=== PATIENT | female | born 1980 | race Caucasian/White ===

== ENCOUNTER 2019-08-19 03:07 | Emergency (ER) | payer OTHER ==
--- NOTE | 2019-08-19 03:10 | PDOC ---
History of Present Illness - General Chief Complaint: Nausea/Vomiting Stated Complaint: DIZZY/VOMITING Time Seen by Provider: 08/19/19 03:09 History Source: Patient - History of Present Illness Initial Comments: 39 YOF h/o lymphoma presents with CP, right arm numbness, and nausea for 3 hours duration. Patient reports that this AM she woke up to a sensation of numbness in her right arm. She subsequently began to experience a tight, "squeezing" pain her chest and became nauseas which prompted her to call EMS. She also notes some recent intermittent blurry vision. She denies loss of strength, speech d ifficulties, confusion, vomiting, diarrhea, fever or chills. Past History - Travel History Traveled outside of the country in the last 30 days: No Close contact w/someone who was outside of country & ill: No - Medical History Allergies/Adverse Reactions: Allergies Allergy/AdvReac Type Severity Reaction Status Date / Time No Known Allergies Allergy Verified 08/19/19 03:12 Home Medications: Ambulatory Orders Azithromycin [Zithromax Tri-Ko (3 DAYS) -] 500 mg PO DAILY #3 tablet 08/19/19 Review of Systems - Review of Systems Constitutional: Yes: See HPI HEENTM: Yes: See HPI Respiratory: Yes: See HPI Cardiac (ROS): Yes: See HPI ABD/GI: Yes: See HPI : Yes: See HPI Musculoskeletal: Yes: See HPI Integumentary: Yes: See HPI Neurological: Yes: See HPI Endocrine: Yes: See HPI Hematologic/Lymphatic: Yes: See HPI *Physical Exam - Physical Exam General Appearance: Yes: Nourished, Appropriately Dressed HEENT: positive: EOMI, GALLITO, Normal Voice Respiratory/Chest: positive: Lungs Clear, Normal Breath Sounds Cardiovascular: positive: Regular Rhythm, Regular Rate, S1, S2 Gastrointestinal/Abdominal: positive: Normal Bowel Sounds, Soft Neurologic: positive: pull through hooker II-XII NML intact, Fully Oriented, Alert, Normal Mood/Affect, Normal Response, Motor Strength 5/5 ED Treatment Course - LABORATORY CBC & Chemistry Diagram: 08/19/19 03:54 08/19/19 03:54 Medical Decision Making - Medical Decision Making 39 YOF h/o lymphoma presenting with arm numbness, chest pain, and nausea. Physical exam wnl, no acute neurological abnormalities. ddx includes but is not limited to TIA, CVA, panic attack, PE. Plan: Labs, Troponin, D-Dimer, EKG, CT head, CTA chest if elevated D dimer. Reasses: Labs wnl. Borderline elevated D dimer prompted CTA chest. CT head demonstrates no acute abnormalities. CTA chest unrevealing of PE, however shows area of consolidation/ atelectasis which could not exclude pneumonia. EKG wnl. Will prescribe azithromycin for possible pneumonia. Patient will be transferred to day team. Discharge - Discharge Information Problems reviewed: Yes Clinical Impression/Diagnosis: Right arm numbness PNA (pneumonia) Qualifiers: Pneumonia type: due to unspecified organism Laterality: right Lung location: middle lobe of lung Qualified Code(s): J18.9 - Pneumonia, unspecified organism Condition: Good Disposition: HOME - Additional Discharge Information Prescriptions: Azithromycin [Zithromax Tri-Ko (3 DAYS) -] 500 mg PO DAILY #3 tablet - Follow up/Referral Referrals: Laci Sigala MD [Staff Physician] - - Patient Discharge Instructions Patient Printed Discharge Instructions: DI for Pneumonia -- Adult Additional Instructions: Your CT shows that you have a small lung infection. There was no evidence of a stroke Take the prescribed azithromycin as directed. Take tylenol or ibuprofen if you have pain. Please follow up with your primary care doctor and the referred neurologist Dr Sigala - Post Discharge Activity
--- NOTE | 2019-08-19 03:13 | PDOC ---
Attending Attestation - Resident Resident Name: Gianluca Mendoza - ED Attending Attestation I have performed the following: I have examined & evaluated the patient, The case was reviewed & discussed with the resident, I agree w/resident's findings & plan - HPI HPI: 08/19/19 04:41 see resident hpi - Physicial Exam PE: 08/19/19 04:41 see resident exam - Medical Decision Making 08/19/19 04:41 39-year-old female complaining of right arm numbness and heaviness that she noticed when abruptly awaking from sleep this evening, now resolved Patient had concurrent shortness of breath and lightheadedness now also improved We will plan for labs including troponin and d-dimer CT scan of the brain We will plan for observation admission for possible TIA pending results Discharge - Discharge Information Problems reviewed: Yes Clinical Impression/Diagnosis: Right arm numbness, Near syncope Condition: Fair - Follow up/Referral - Patient Discharge Instructions - Post Discharge Activity
[2019-08-19 03:15] VITALS: BMI 29.9
[2019-08-19] MEDS ORDERED: ONDANSETRON 4 MG/2 ML VIAL IVPUSH ONE (03:38)
[2019-08-19 04:14] LABS: BASO % 0.5 % (0-2.0); HEMATOCRIT 41.8 % (32.4-45.2); HEMOGLOBIN 13.8 GM/dL (10.7-15.3); LYMPH % 22.4 % (8-40); MCH 28.2 pg (25.7-33.7); MEAN CELL VOLUME 85.6 fl (80-96); MEAN PLT VOLUME 9.5 fl (7.5-11.1); MONO % 5.7 % (3.8-10.2); NEUT % 70.4 % (42.8-82.8); PLATELET COUNT 234 K/MM3 (134-434); RBC 4.88 M/mm3 (3.60-5.2); RDW 13.4 % (11.6-15.6); WHITE BLOOD COUNT 11.8 K/mm3 (4.0-10.0)
[2019-08-19 04:38] LABS: ALBUMIN 3.7 g/dl (3.4-5.0); BILIRUBIN,TOTAL 0.4 mg/dL (0.2-1); BLOOD UREA NITROGEN 14.3 mg/dL (7-18); CREATININE 0.9 mg/dL (0.55-1.3); POTASSIUM 3.7 mmol/L (3.5-5.1); TOT PROT 6.7 g/dl (6.4-8.2)
[2019-08-19 05:18] LABS: INR 0.88 (0.83-1.09); PROTHROMBIN TIME (PATIENT) 10.4 SEC (9.7-13.0)
[2019-08-19 05:20] LABS: ACTIVATED PTT 30.1 SECONDS (25.2-36.5)
--- NOTE | 2019-08-19 07:27 | PDOC ---
*Physical Exam - Vital Signs Last Vital Signs Temp Pulse Resp BP Pulse Ox 98 F 86 18 118/76 99 08/19/19 03:09 08/19/19 06:32 08/19/19 03:09 08/19/19 03:09 08/19/19 06:32 ED Treatment Course - LABORATORY CBC & Chemistry Diagram: 08/19/19 03:54 08/19/19 03:54 - ADDITIONAL ORDERS Additional order review: Laboratory Results 08/19/19 08/19/19 08/19/19 03:54 03:54 03:54 PT with INR 10.40 INR 0.88 PTT (Actin FS) 30.1 D-Dimer 535 H Sodium Potassium Chloride Carbon Dioxide Anion Gap BUN Creatinine Est GFR (CKD-EPI)AfAm Est GFR (CKD-EPI)NonAf Random Glucose Calcium Total Bilirubin AST ALT Alkaline Phosphatase Creatine Kinase 169 Creatine Kinase Index 1.4 CK-MB (CK-2) 2.4 Troponin I < 0.02 Total Protein Albumin Serum , Qual 08/19/19 08/19/19 03:54 03:54 PT with INR INR PTT (Actin FS) D-Dimer Sodium 139 Potassium 3.7 Chloride 103 Carbon Dioxide 29 Anion Gap 6 L BUN 14.3 Creatinine 0.9 Est GFR (CKD-EPI)AfAm 94.67 Est GFR (CKD-EPI)NonAf 81.68 Random Glucose 106 Calcium 9.0 Total Bilirubin 0.4 AST 20 ALT 40 Alkaline Phosphatase 69 Creatine Kinase Creatine Kinase Index CK-MB (CK-2) Troponin I Total Protein 6.7 Albumin 3.7 Serum , Qual Negative 08/19/19 03:54 RBC 4.88 MCV 85.6 MCHC 33.0 RDW 13.4 MPV 9.5 Neutrophils % 70.4 Lymphocytes % 22.4 Monocytes % 5.7 Eosinophils % 1.0 Basophils % 0.5 - Medications Given in the ED: ED Medications Discontinued Medications Generic Name Dose Route Start Last Admin Trade Name Freq PRN Reason Stop Dose Admin Ondansetron HCl 4 mg 08/19/19 03:38 08/19/19 04:17 Zofran Injection IVPUSH 08/19/19 03:39 4 mg ONCE ONE Administration Medical Decision Making - Medical Decision Making 08/19/19 07:27 39 YOF h/o lymphoma presents with CP, right arm numbness, and nausea for 3 hours duration. MRI neg for CVA, on re-eval pt is neurovascular intact R arm (5/5 strength, full ROM, no numbness, 2+ radial pulse). Low concern for ACS (neg tropx2, non concerning EKG). DC home w z-pack for early PNA on CT, PCP f/u Discharge - Discharge Information Problems reviewed: Yes Clinical Impression/Diagnosis: Right arm numbness PNA (pneumonia) Qualifiers: Pneumonia type: due to unspecified organism Laterality: right Lung location: middle lobe of lung Qualified Code(s): J18.9 - Pneumonia, unspecified organism Condition: Good Disposition: HOME - Additional Discharge Information Prescriptions: Azithromycin [Zithromax Tri-Ko (3 DAYS) -] 500 mg PO DAILY #3 tablet - Follow up/Referral Referrals: Laci Sigala MD [Staff Physician] - - Patient Discharge Instructions Patient Printed Discharge Instructions: DI for Pneumonia -- Adult Additional Instructions: Your CT shows that you have a small lung infection. There was no evidence of a stroke Take the prescribed azithromycin as directed. Take tylenol or ibuprofen if you have pain. Please follow up with your primary care doctor and the referred neurologist Dr Sigala - Post Discharge Activity
[2019-08-19 09:36] VITALS: BP 125/69; PULSE 85; TEMP 98.7
--- NOTE | 2019-08-19 12:03 | EKG ---
Test Reason : Blood Pressure : / mmHG Vent. Rate : 094 BPM Atrial Rate : 094 BPM P-R Int : 144 ms QRS Dur : 090 ms QT Int : 392 ms P-R-T Axes : 051 -13 031 degrees QTc Int : 490 ms NORMAL SINUS RHYTHM CANNOT RULE OUT ANTERIOR INFARCT , AGE UNDETERMINED ABNORMAL ECG NO PREVIOUS ECGS AVAILABLE Confirmed by MD Vladislav, Pola ([id number]) on 08/19/2019 12:02:30 PM Referred By: Confirmed By:Pola Loomis MD
== END 2019-08-19 09:40 | disposition home or self-care (01) ==
LOC: JER 03:07
PROC: 3E033NZ Introduction of Analgesics, Hypnotics, Sedatives into Peripheral Vein, Percutaneous Approach (ICD-10-PCS; principal; 2019-08-19)
DX: R20.2 Paresthesia of skin (principal); J18.9 Pneumonia, unspecified organism
CPT/HCPCS: 36415; 70450-TC; 70551-TC; 71275-TC; 80053; 82550; 82553; 84484; 84703; 85025; 85379; 85610; 85730; 93005; 93010; 99284-25; U0003

== ENCOUNTER 2020-11-25 02:14 | Observation (INO) | payer OTHER ==
[2020-11-25 02:29] VITALS: BMI 30.7
[2020-11-25] MEDS ORDERED: ACETAMINOPHEN 1000 MG/100 ML VIAL IVPB ONE (02:50)
[2020-11-25] MEDS ORDERED: LACTATED RINGERS SOLUTION 1000 ML INFUS.BAG IV ONE (02:50)
[2020-11-25 03:11] LABS: BASO % 0.8 % (0-2.0); EOS % 1.6 % (0-4.5); HEMATOCRIT 39.8 % (32.4-45.2); HEMOGLOBIN 13.5 GM/dL (10.7-15.3); MCH 28.1 pg (25.7-33.7); MEAN CELL VOLUME 82.6 fl (80-96); MEAN PLT VOLUME 8.7 fl (7.5-11.1); MONO % 6.4 % (3.8-10.2); NEUT % 68.2 % (42.8-82.8); PLATELET COUNT 206 10^3/uL (134-434); RBC 4.82 M/mm3 (3.60-5.2); RDW 13.1 % (11.6-15.6); WHITE BLOOD COUNT 8.8 K/mm3 (4.0-10.0)
[2020-11-25 03:18] LABS: INR 1.08 (0.83-1.09); PROTHROMBIN TIME (PATIENT) 12.1 SEC (9.7-13.0)
[2020-11-25 03:37] LABS: CHLORIDE 103 mmol/L (98-107); SODIUM 137 mmol/L (136-145)
[2020-11-25 03:39] LABS: ALBUMIN 3.6 g/dl (3.4-5.0); ANION GAP 8 MMOL/L (8-16); CALCIUM 8.6 mg/dL (8.5-10.1); CO2 27 mmol/L (21-32); MAGNESIUM 2.1 mg/dL (1.8-2.4)
[2020-11-25 03:40] LABS: BLOOD UREA NITROGEN 11.1 mg/dL (7-18)
[2020-11-25 03:42] LABS: GLUCOSE,RANDOM 100 mg/dL (74-106)
[2020-11-25 03:43] LABS: CREATININE 0.8 mg/dL (0.55-1.3); SGOT/AST 24 U/L (15-37); SGPT/ALT 42 U/L (13-61)
[2020-11-25 03:44] LABS: BILIRUBIN,TOTAL 0.8 mg/dL (0.2-1); TOT PROT 6.8 g/dl (6.4-8.2)
[2020-11-25 03:45] LABS: ALK PHOS 71 U/L (45-117)
[2020-11-25] MEDS ORDERED: methylPREDNISolone 8 MG TABLET PO ONE ×2 (04:19→14:30)
[2020-11-25] MEDS ORDERED: methylPREDNISolone 4 MG TABLET PO ONE ×3 (04:30→21:00)
[2020-11-25] MEDS ORDERED: ENOXAPARIN NA (PORCINE) 40 MG/0.4 ML DISP.SYRIN SQ SCH (10:00)
[2020-11-25] MEDS ORDERED: ENOXAPARIN NA (PORCINE) 40 MG/0.4 ML DISP.SYRIN SQ ONE (10:16)
[2020-11-25 10:43] LABS: BASO % 0.9 % (0-2.0); EOS % 0.2 % (0-4.5); HEMATOCRIT 42.8 % (32.4-45.2); HEMOGLOBIN 14.6 GM/dL (10.7-15.3); LYMPH % 11.9 % (8-40); MCH 28.4 pg (25.7-33.7); MCHC 34.1 g/dl (32.0-36.0); MEAN CELL VOLUME 83.4 fl (80-96); MONO % 1.6 % (3.8-10.2); NEUT % 85.4 % (42.8-82.8); PLATELET COUNT 232 10^3/uL (134-434); RBC 5.13 M/mm3 (3.60-5.2); RDW 12.8 % (11.6-15.6)
[2020-11-25] MEDS ORDERED: ENOXAPARIN NA (PORCINE) 100 MG/1 ML DISP.SYRIN SQ ONE ×2 (10:52→10:58)
[2020-11-25] MEDS: ENOXAPARIN NA (PORCINE) 100 MG/1 ML DISP.SYRIN SQ SCH ×2 (11:22→21:01)
[2020-11-25] MEDS ORDERED: diphenhydrAMINE HCL 25 MG CAPSULE (FP) PO ONE (15:30)
[2020-11-25] MEDS ORDERED: methylPREDNISolone NA SUCC 40 MG/1 ML VIAL IVPUSH ONE (15:41)
[2020-11-25 16:04] LABS: CHLORIDE 102 mmol/L (98-107); SODIUM 135 mmol/L (136-145)
[2020-11-25 16:07] LABS: CALCIUM 9.4 mg/dL (8.5-10.1)
[2020-11-25 16:08] LABS: ANION GAP 8 MMOL/L (8-16); BLOOD UREA NITROGEN 9.4 mg/dL (7-18); CO2 24 mmol/L (21-32); GLUCOSE,RANDOM 101 mg/dL (74-106); MAGNESIUM 1.8 mg/dL (1.8-2.4)
[2020-11-25 16:11] LABS: CREATININE 0.7 mg/dL (0.55-1.3); PHOSPHOROUS 3.3 mg/dL (2.5-4.9); SGOT/AST 30 U/L (15-37); SGPT/ALT 45 U/L (13-61)
[2020-11-25 16:12] LABS: BILIRUBIN,TOTAL 1.1 mg/dL (0.2-1); TOT PROT 7.8 g/dl (6.4-8.2)
[2020-11-25 16:14] LABS: ALK PHOS 81 U/L (45-117)
[2020-11-25] MEDS ORDERED: ACETAMINOPHEN 1000 MG/100 ML VIAL IVPB PRN (16:55)
[2020-11-25] MEDS ORDERED: ENOXAPARIN NA (PORCINE) 100 MG/1 ML DISP.SYRIN SQ SCH ×2 (22:00)
[2020-11-26] MEDS ORDERED: methylPREDNISolone 4 MG TABLET PO ONE (03:00)
[2020-11-26] MEDS ORDERED: diphenhydrAMINE HCL 25 MG CAPSULE (FP) PO ONE (03:00)
[2020-11-26] MEDS ORDERED: LORazepam 2 MG/ML SDV VIAL IVPUSH PRN (03:03)
[2020-11-26] MEDS ORDERED: EPINEPHrine 1:1,000 0.3 MG/0.3 ML SYR IM PRN (03:07)
[2020-11-26] MEDS ORDERED: EPINEPHrine 1:1,000 1 MG/1 ML - 30ML VIAL (INJECTION) SQ ONE (04:31)
[2020-11-26] MEDS ORDERED: EPINEPHrine/PF 1 MG/1 ML (1:1,000) AMPULE ONE (04:32)
[2020-11-26] MEDS ORDERED: TRIMETHOBENZAMIDE HCL 200MG/2ML INJ IM PRN (04:53)
[2020-11-26] MEDS ORDERED: EPINEPHrine/PF 1 MG/1 ML (1:1,000) AMPULE IM PRN (05:01)
[2020-11-26 08:31] LABS: BASO % 0.2 % (0-2.0); HEMATOCRIT 41.3 % (32.4-45.2); HEMOGLOBIN 13.9 GM/dL (10.7-15.3); LYMPH % 8.8 % (8-40); MCH 28.1 pg (25.7-33.7); MCHC 33.6 g/dl (32.0-36.0); MEAN CELL VOLUME 83.8 fl (80-96); MEAN PLT VOLUME 9.4 fl (7.5-11.1); MONO % 1.7 % (3.8-10.2); NEUT % 89.3 % (42.8-82.8); PLATELET COUNT 274 10^3/uL (134-434); RBC 4.93 M/mm3 (3.60-5.2); RDW 12.9 % (11.6-15.6); WHITE BLOOD COUNT 15.5 K/mm3 (4.0-10.0)
[2020-11-26 09:04] LABS: ALBUMIN 3.6 g/dl (3.4-5.0); BLOOD UREA NITROGEN 14.6 mg/dL (7-18)
[2020-11-26 09:05] LABS: BILIRUBIN,TOTAL 0.6 mg/dL (0.2-1); CALCIUM 9.3 mg/dL (8.5-10.1); TOT PROT 7.4 g/dl (6.4-8.2)
[2020-11-26 09:07] LABS: CREATININE 0.8 mg/dL (0.55-1.3)
[2020-11-26] MEDS: ENOXAPARIN NA (PORCINE) 100 MG/1 ML DISP.SYRIN SQ SCH (10:12)
[2020-11-26 14:10] LABS: URINE APPEARANCE CLEAR; URINE BILIRUBIN NEGATIVE (NEGATIVE); URINE COLOR YELLOW; URINE GLUCOSE (UA) NEGATIVE (NEGATIVE); URINE KETONE NEGATIVE (NEGATIVE)
[2020-11-26 14:11] LABS: EPI CELLS 68.4 /uL (0-25.1); HYALINE CASTS 2.41 /uL (0-3.1); URINE BACTERIA 1192.9 /uL (0-1359); URINE LEUK ESTERASE NEGATIVE (NEGATIVE); URINE NITRITE NEGATIVE (NEGATIVE); URINE PROTEIN NEGATIVE (NEGATIVE); URINE RBC 19 /uL (0-23.9); URINE UROBILINOGEN 0.2 mg/dL (0.2-1.0); URINE WBC 30.7 /uL (0-25.8)
[2020-11-27 06:40] LABS: BASO % 0.7 % (0-2.0); EOS % 0.2 % (0-4.5); HEMATOCRIT 39.6 % (32.4-45.2); HEMOGLOBIN 13.5 GM/dL (10.7-15.3); LYMPH % 33.6 % (8-40); MCH 28.8 pg (25.7-33.7); MCHC 34.1 g/dl (32.0-36.0); MEAN CELL VOLUME 84.4 fl (80-96); MEAN PLT VOLUME 9.2 fl (7.5-11.1); MONO % 5.6 % (3.8-10.2); NEUT % 59.9 % (42.8-82.8); PLATELET COUNT 199 10^3/uL (134-434); RBC 4.69 M/mm3 (3.60-5.2); RDW 12.8 % (11.6-15.6); WHITE BLOOD COUNT 9.9 K/mm3 (4.0-10.0)
[2020-11-27 09:16] VITALS: BP 116/65; PULSE 83; TEMP 97.9
[2020-11-27] MEDS ORDERED: ENOXAPARIN NA (PORCINE) 40 MG/0.4 ML DISP.SYRIN SQ SCH (10:00)
== END 2020-11-27 13:02 | disposition home or self-care (01) ==
LOC: JER 02:14 → JERBED 04:22 → J7W 13:11
PROVIDERS: ADMIT Internal Medicine
PROC: 3E033NZ Introduction of Analgesics, Hypnotics, Sedatives into Peripheral Vein, Percutaneous Approach (ICD-10-PCS; principal; 2020-11-25)
PROC: 3E023GC Introduction of Other Therapeutic Substance into Muscle, Percutaneous Approach (ICD-10-PCS; 2020-11-25)
PROC: 3E0337Z Introduction of Electrolytic and Water Balance Substance into Peripheral Vein, Percutaneous Approach (ICD-10-PCS; 2020-11-25)
PROC: 3E033GC Introduction of Other Therapeutic Substance into Peripheral Vein, Percutaneous Approach (ICD-10-PCS; 2020-11-25)
DX: C81.90 Hodgkin lymphoma, unspecified, unspecified site (principal); Z86.718 Personal history of other venous thrombosis and embolism; D64.9 Anemia, unspecified; F41.0 Panic disorder [episodic paroxysmal anxiety]; R07.89 Other chest pain; Z85.79 Personal history of other malignant neoplasms of lymphoid, hematopoietic and related tissues; R79.89 Other specified abnormal findings of blood chemistry; R07.9 Chest pain, unspecified
CPT/HCPCS: 36415; 71046-TC-FY; 71275-TC; 80053; 81003; 83615; 83735; 84100; 84439; 84443; 84484; 84703; 85025; 85379; 85610; 85730; 87086; 87186; 93005; 93010; 93306-TC; 93970-TC; 99285-25; C9803; G0378; J0131; Q9967; U0003; U0005

== ENCOUNTER 2020-11-29 05:50 | Emergency (ER) | payer OTHER ==
[2020-11-29 06:21] VITALS: BP 115/79; PULSE 90; TEMP 97.6; BMI 30.7
== END 2020-11-29 08:07 ==
LOC: JER 05:50
DX: R20.2 Paresthesia of skin (principal); R07.9 Chest pain, unspecified
CPT/HCPCS: 99281-25

== ENCOUNTER 2021-12-07 03:30 | Observation (INO) | payer OTHER ==
[2021-12-07] MEDS ORDERED: FAMOTIDINE 20 MG/50 ML IVPB 20 MG/50 ML MG IVPB ONE ×3 (03:38→14:00)
[2021-12-07] MEDS ORDERED: MAG HYDROX/AL HYDROX/SIMETH 30 ML UNIT-DOSE CUP PO ONE (03:38)
[2021-12-07] MEDS ORDERED: ACETAMINOPHEN 500 MG TABLET (FP) PO ONE (03:38)
[2021-12-07] MEDS ORDERED: MAG HYDROX/AL HYDROX/SIMETH 30 ML UNIT-DOSE CUP ONE (04:03)
[2021-12-07] MEDS ORDERED: ACETAMINOPHEN 325 MG TABLET (FP) ONE (04:03)
[2021-12-07 04:44] LABS: BASO % 0.3 % (0-2.0); EOS % 2.3 % (0-4.5); HEMOGLOBIN 12.6 GM/dL (10.7-15.3); MCHC 34.1 g/dl (32.0-36.0); MEAN CELL VOLUME 82.3 fl (80-96); NEUT % 65.4 % (42.8-82.8); PLATELET COUNT 213 10^3/uL (134-434); RDW 13.3 % (11.6-15.6); WHITE BLOOD COUNT 6.6 K/mm3 (4.0-10.0)
[2021-12-07 05:04] LABS: INR 0.99 (0.83-1.09); PROTHROMBIN TIME (PATIENT) 11.4 SEC (9.7-13.0)
[2021-12-07 05:05] LABS: BLOOD UREA NITROGEN 8.7 mg/dL (7-18); MAGNESIUM 2.1 mg/dL (1.8-2.4)
[2021-12-07 05:07] LABS: ACTIVATED PTT 28.7 SECONDS (25.2-36.5)
[2021-12-07 05:08] LABS: CREATININE 0.7 mg/dL (0.55-1.3)
[2021-12-07 05:10] LABS: BILIRUBIN,TOTAL 0.3 mg/dL (0.2-1); TOT PROT 6.1 g/dl (6.4-8.2)
[2021-12-07] MEDS ORDERED: DEXAMETHASONE SOD PHOSPHATE 10 MG/1 ML VIAL IVPUSH ONE (05:36)
[2021-12-07] MEDS ORDERED: DEXAMETHASONE SOD PHOSPHATE 10 MG/1 ML VIAL ONE (06:05)
[2021-12-07] MEDS ORDERED: ACETAMINOPHEN 325 MG TABLET (FP) PO PRN (08:08)
[2021-12-07] MEDS ORDERED: diphenhydrAMINE HCL 25 MG CAPSULE (FP) PO ONE (08:14)
[2021-12-07] MEDS ORDERED: ENOXAPARIN NA (PORCINE) 100 MG/1 ML DISP.SYRIN SQ ONE ×2 (08:38→08:52)
[2021-12-07] MEDS ORDERED: ENOXAPARIN NA (PORCINE) 40 MG/0.4 ML DISP.SYRIN SQ SCH (10:00)
[2021-12-07 10:22] LABS: EPI CELLS 19 /uL (0-25.1); HYALINE CASTS 3 /uL (0-3.1); URINE APPEARANCE CLOUDY; URINE BACTERIA 273 /uL (0-1359); URINE BILIRUBIN NEGATIVE (NEGATIVE); URINE COLOR RED; URINE GLUCOSE (UA) NEGATIVE (NEGATIVE); URINE KETONE NEGATIVE (NEGATIVE); URINE LEUK ESTERASE 3+ (NEGATIVE); URINE NITRITE NEGATIVE (NEGATIVE); URINE PROTEIN 2+ (NEGATIVE); URINE RBC 242 /uL (0-23.9); URINE UROBILINOGEN 0.2 mg/dL (0.2-1.0); URINE WBC 458 /uL (0-25.8)
[2021-12-07 10:33] LABS: HCG,QUALITATIVE URINE Negative
[2021-12-07] MEDS ORDERED: predniSONE 40 MG, predniSONE 10 MG PO ONE ×4 (12:00→18:30)
[2021-12-07] MEDS ORDERED: CEFTRIAXONE 1 GM/50 ML BAG ONE (12:07)
[2021-12-07] MEDS: CEFTRIAXONE 1 GM in DEXTROSE 5%-WATER - 50 ML IVPB SCH (12:16)
[2021-12-07] MEDS ORDERED: predniSONE 20 MG TABLET (UD) PO ONE ×3 (12:30→18:30)
[2021-12-07] MEDS ORDERED: predniSONE 20 MG TABLET (UD) PO SCH (14:00)
[2021-12-08 02:41] VITALS: RESP 18; BMI 35.3
[2021-12-08 08:11] LABS: BASO % 0.4 % (0-2.0); EOS % 0.1 % (0-4.5); HEMATOCRIT 37.1 % (32.4-45.2); HEMOGLOBIN 12.5 GM/dL (10.7-15.3); LYMPH % 22.2 % (8-40); MCH 28.1 pg (25.7-33.7); MCHC 33.7 g/dl (32.0-36.0); MEAN CELL VOLUME 83.3 fl (80-96); MEAN PLT VOLUME 9.1 fl (7.5-11.1); MONO % 5.1 % (3.8-10.2); NEUT % 72.2 % (42.8-82.8); PLATELET COUNT 239 10^3/uL (134-434); RBC 4.46 M/mm3 (3.60-5.2); RDW 13.2 % (11.6-15.6); WHITE BLOOD COUNT 11.4 K/mm3 (4.0-10.0)
[2021-12-08 08:30] LABS: CALCIUM 8.9 mg/dL (8.5-10.1)
[2021-12-08 08:31] LABS: MAGNESIUM 2.1 mg/dL (1.8-2.4)
[2021-12-08 08:34] LABS: CREATININE 0.7 mg/dL (0.55-1.3); PHOSPHOROUS 3.5 mg/dL (2.5-4.9)
[2021-12-08] MEDS ORDERED: cefTRIAXone SODIUM 1 GM VIAL ONE (09:08)
[2021-12-08] MEDS: CEFTRIAXONE 1 GM in DEXTROSE 5%-WATER - 50 ML IVPB SCH (09:14)
[2021-12-08 18:26] VITALS: BP 120/76; PULSE 77; TEMP 97.8
== END 2021-12-08 18:45 | disposition home or self-care (01) ==
LOC: JER 03:30 → JERBED 06:10 → J4W 12-08 01:30
PROVIDERS: ADMIT Internal Medicine; ATTEND Internal Medicine
PROC: 3E03329 Introduction of Other Anti-infective into Peripheral Vein, Percutaneous Approach (ICD-10-PCS; principal; 2021-12-07)
PROC: 3E033GC Introduction of Other Therapeutic Substance into Peripheral Vein, Percutaneous Approach (ICD-10-PCS; 2021-12-07)
PROC: 3E023GC Introduction of Other Therapeutic Substance into Muscle, Percutaneous Approach (ICD-10-PCS; 2021-12-07)
DX: J06.9 Acute upper respiratory infection, unspecified (principal); C81.95 Hodgkin lymphoma, unspecified, lymph nodes of inguinal region and lower limb; G47.33 Obstructive sleep apnea (adult) (pediatric); Z86.718 Personal history of other venous thrombosis and embolism; R79.1 Abnormal coagulation profile; R07.89 Other chest pain
CPT/HCPCS: 0241U-QW; 36415; 71045-TC-FY; 80048; 80053; 81003; 83735; 84100; 84443; 84484; 84703; 85025; 85379; 85610; 85730; 87086; 93005; 93010; 93306-TC; 93970-TC; 96365; 96367; 96372; 96375; 99285-25; G0378; J1100

== ENCOUNTER 2022-06-07 04:16 | Day surgery (SDC) | payer OTHER ==
[2022-06-02 15:58] VITALS: BMI 35.5
[2022-06-07 08:54] VITALS: TEMP 98
[2022-06-07 09:08] VITALS: RESP 18
[2022-06-07 09:51] VITALS: BP 115/72; PULSE 80
== END 2022-06-07 09:38 | disposition home or self-care (01) ==
LOC: JASU-ENDO 04:16
PROVIDERS: ATTEND Student in an Organized Health Care Education/Training Program
PROC: 0DB78ZX Excision of Stomach, Pylorus, Via Natural or Artificial Opening Endoscopic, Diagnostic (ICD-10-PCS; 2022-06-07)
PROC: 0DB68ZX Excision of Stomach, Via Natural or Artificial Opening Endoscopic, Diagnostic (ICD-10-PCS; 2022-06-07)
PROC: 0DB48ZX Excision of Esophagogastric Junction, Via Natural or Artificial Opening Endoscopic, Diagnostic (ICD-10-PCS; 2022-06-07)
PROC: 0DB98ZX Excision of Duodenum, Via Natural or Artificial Opening Endoscopic, Diagnostic (ICD-10-PCS; principal; 2022-06-07 08:30)
DX: K20.90 Esophagitis, unspecified without bleeding (principal); K29.50 Unspecified chronic gastritis without bleeding
CPT/HCPCS: 81025; 88305-TC; 88342-TC

== ENCOUNTER 2023-03-13 19:33 | Emergency (ER) | payer OTHER ==
[2023-03-13 19:44] VITALS: BP 98/63; PULSE 88; RESP 16; TEMP 97.8; BMI 33.9
[2023-03-13 20:30] LABS: HEMATOCRIT 40.3 % (32.4-45.2); HEMOGLOBIN 13.7 G/dL (10.7-15.3); MCH 28.5 pg (25.7-33.7); MEAN CELL VOLUME 83.8 fl (80-96); MEAN PLT VOLUME 9.4 fl (7.5-11.1); PLATELET COUNT 241.5 10^3/uL (134-434); RBC 4.81 10^6/uL (3.60-5.2); RDW 13.7 % (11.6-15.6); WHITE BLOOD COUNT 9.4 10^3/uL (4.0-10.8)
[2023-03-13 20:42] LABS: ALBUMIN 4.2 g/dl (3.4-5.0); BILIRUBIN,TOTAL 0.5 mg/dl (0.2-1); CALCIUM 9.3 mg/dl (8.5-10.1); POTASSIUM 3.5 mmol/L (3.5-5.1); TOT PROT 6.5 g/dl (6.4-8.2)
[2023-03-13] MEDS ORDERED: DEXAMETHASONE SOD PHOSPHATE 10 MG/1 ML VIAL IVPUSH ONE (21:33)
[2023-03-13] MEDS ORDERED: DEXAMETHASONE SOD PHOSPHATE 10 MG/1 ML VIAL ONE (21:34)
== END 2023-03-13 23:26 | disposition home or self-care (01) ==
LOC: FER 19:33
PROC: 3E033GC Introduction of Other Therapeutic Substance into Peripheral Vein, Percutaneous Approach (ICD-10-PCS; principal; 2023-03-13)
PROC: 3E033GC Introduction of Other Therapeutic Substance into Peripheral Vein, Percutaneous Approach (ICD-10-PCS; 2023-03-13)
DX: R07.89 Other chest pain (principal); W19.XXXD Unspecified fall, subsequent encounter
CPT/HCPCS: 36415; 71275-TC; 80053; 81025; 82550; 82553; 84484; 85027; 85379; 93005; 99285-25; J1100; Q9967